=== PATIENT | female | born 1935 | race Two or more races ===

== ENCOUNTER 2017-04-01 10:27 | Emergency (ER) | payer OTHER ==
[2017-04-01 10:50] VITALS: BP 142/66
--- NOTE | 2017-04-01 11:42 | ED ---
Skin Complaint - HPI Summary HPI Summary: 81 year old female presents with complains rash on her hands after picking weeds. - History of Current Complaint Chief Complaint: [facility] Time Seen by Provider: 04/01/17 11:42 Stated Complaint: HAND COMPLAINT, RASH - Allergy/Home Medications Allergies/Adverse Reactions: Allergies Allergy/AdvReac Type Severity Reaction Status Date / Time No Known Allergies Allergy Verified 02/16/14 09:19 PMH/Surg Hx/FS Hx/Imm Hx Previously Healthy: Yes Cardiovascular History: Reports: Hx Hypertension - ON MEDICATION FOR Sensory History: Reports: Hx Cataracts - LEFT EYE, Hx Contacts or Glasses - READING Denies: Hx Hearing Aid - DIFF. HEARING Opthamlomology History: Reports: Hx Cataracts - LEFT EYE, Hx Contacts or Glasses - READING - Surgical History Surgery Procedure, Year, and Place: CATARACT RIGHT EYE- POND GAP. LUMP IN NECK REMOVED - POND GAP Hx Anesthesia Reactions: No Infectious Disease History: No Infectious Disease History: Denies: Hx Clostridium Difficile, Hx Hepatitis, Hx Human Immunodeficiency Virus (HIV), Hx of Known/Suspected MRSA, Hx Shingles, Hx Tuberculosis, Hx Known/ Suspected VRE, Hx Known/Suspected VRSA, History Other Infectious Disease, Traveled Outside the in Last 30 Days - Social History Alcohol Use: None Substance Use Type: Reports: None Smoking Status (MU): Never Smoked Tobacco Review of Systems Constitutional: Negative Eyes: Negative Cardiovascular: Negative Respiratory: Negative Gastrointestinal: Negative Genitourinary: Negative Musculoskeletal: Negative Positive: Rash All Other Systems Reviewed And Are Negative: Yes Physical Exam Triage Information Reviewed: Yes Vital Signs On Initial Exam: Initial Vitals Temp Pulse Resp BP Pulse Ox 36.6 C 66 16 142/66 100 04/01/17 10:47 04/01/17 10:47 04/01/17 10:47 04/01/17 10:47 04/01/17 10:47 Vital Signs Reviewed: Yes Appearance: Positive: Well-Appearing Skin: Positive: Warm, Erythema @ - rash. Negative: "Wooden", Cyanosis @, Jaundiced, Target Lesions, Purpura, Scaly Skin/Lesions, Pale, Weeping Skin/ Lesions Head/Face: Positive: Normal Head/Face Inspection Eyes: Positive: Normal ENT: Positive: Normal ENT inspection Dental: Negative: Percussion Tenderness @ Diagnostics - Vital Signs Vital Signs Temp Pulse Resp BP Pulse Ox 04/01/17 10:47 36.6 C 66 16 142/66 100 - Laboratory Lab Statement: Any lab studies that have been ordered have been reviewed, and results considered in the medical decision making process. Course/Dx - Differential Diagnoses - Skin Complaint Differential Diagnoses: Poison [place], Poison [place] - Diagnoses Provider Diagnoses: Poison [place] Discharge - Discharge Plan Condition: Stable Disposition: HOME Prescriptions: Cephalexin CAP* [Keflex CAP*] 500 mg PO TID #30 cap Triamcinolone 0.1% CREAM (NF) [Kenalog 0.1% Cream (NF)] 1 applic .SEE ORDER TID PRN #90 gm PRN Reason: Itching predniSONE TAB* [Deltasone TAB*] 40 mg PO DAILY #10 tab Patient Education Materials: Acute Rash (ED) Referrals: Chris Medina MD [Primary Care Provider] - If Needed
== END 2017-04-01 11:50 | disposition home or self-care (01) ==
LOC: UCEAST 10:27
DX: L23.7 Allergic contact dermatitis due to plants, except food (principal); I10 Essential (primary) hypertension
CPT/HCPCS: 99212; G0463